=== PATIENT | female | born 1975 | race Caucasian/White ===

== ENCOUNTER 2018-04-12 00:03 | Day surgery (SDC) | payer OTHER, BC ==
[~2018-04-12 00:03] MED LIST: CODACE30 PO; FEXO60 PO; LEVSOD88 PO
[2018-04-12 10:56] LABS: Performing Lab VERACYTE; Test Name FNA
== END 2018-04-12 22:51 | disposition home or self-care (01) ==
LOC: US 00:03
PROVIDERS: Nurse Practitioner Family
PROC: 0GBH3ZX Excision of Right Thyroid Gland Lobe, Percutaneous Approach, Diagnostic (ICD-10-PCS; principal; 2018-04-12)
DX: E04.1 Nontoxic single thyroid nodule (principal)
CPT/HCPCS: 10022; 76942

== ENCOUNTER → 2023-06-21 | Outpatient (CLI) | payer OTHER ==
[2023-06-22 12:30] LABS: Campylobacter Sp Not Detected (NOT DETECT); Enteroaggregative E. coli-EAEC Not Detected (NOT DETECT); Plesiomonas Shigelloides Not Detected (NOT DETECT); Salmonella Sp Not Detected (NOT DETECT); Vibrio Cholerae Not Detected (NOT DETECT); Vibrio Sp Not Detected (NOT DETECT); Yersinia Enterocolitica Not Detected (NOT DETECT)
[2023-06-22 12:31] LABS: Adenovirus F 40/41 Not Detected (NOT DETECT); Astrovirus Not Detected (NOT DETECT); Cryptosporidium Not Detected (NOT DETECT); Cyclospora Cayetanensis Not Detected (NOT DETECT); E. Coli O157 Not Detected (NOT DETECT); Entamoeba Histolytica Not Detected (NOT DETECT); Enteropathogenic E. coli-EPEC Not Detected (NOT DETECT); Enterotoxigenic E. coli-ETEC Not Detected (NOT DETECT); Giardia Lamblia Not Detected (NOT DETECT); Norovirus GI/GII Not Detected (NOT DETECT); Rotavirus A Not Detected (NOT DETECT); Sapovirus Not Detected (NOT DETECT); Shiga Toxin-prod E. coli-STEC Not Detected (NOT DETECT); Shigella/Enteroin E. coli-EIEC Not Detected (NOT DETECT)
== END | disposition home or self-care (01) ==
LOC: LAB SHORT 14:34 → LAB 14:34
PROVIDERS: Nurse Practitioner Family
DX: R19.7 Diarrhea, unspecified (principal)
CPT/HCPCS: 87507

== ENCOUNTER → 2023-08-08 | Outpatient (CLI) | payer OTHER | END | disposition home or self-care (01) | LOC: LAB SHORT 14:00 → LAB 14:00 | DX: L03.012 Cellulitis of left finger (principal) | CPT/HCPCS: 87070; 87075; 87076; 87077; 87147; 87186; 87205 ==

== ENCOUNTER → 2023-10-21 | Outpatient (CLI) | payer OTHER | END | disposition home or self-care (01) | LOC: LAB SHORT 07:49 → LAB 07:49 | DX: L98.8 Other specified disorders of the skin and subcutaneous tissue (principal); L08.89 Other specified local infections of the skin and subcutaneous tissue | CPT/HCPCS: 88304; 88312 ==

== ENCOUNTER → 2024-02-25 | Outpatient (CLI) | payer OTHER ==
[2024-02-25 11:41] LABS: BASOPHILS ABSOLUTE AUTO 0.04 K/mm3 (0.00-0.23); BASOPHILS PERCENT AUTO 1 % (0-2); EOSINOPHILS ABSOLUTE AUTO 0.13 K/mm3 (0.00-0.68); EOSINOPHILS PERCENT AUTO 2 % (0-6); Hemoglobin 12.5 g/dL (11.5-16.0); IMMATURE GRAN ABSOLUTE AUTO 0.02 K/mm3 (0.00-0.10); IMMATURE GRAN PERCENT AUTO 0 % (0-1); LYMPHOCYTES ABSOLUTE AUTO 2.11 K/mm3 (0.84-5.20); LYMPHOCYTES PERCENT AUTO 28 % (21-46); MONOCYTES ABSOLUTE AUTO 0.43 K/mm3 (0.16-1.47); MONOCYTES PERCENT AUTO 6 % (4-13); Mean Corpuscular HGB 35.5 pg (26.0-34.0); Mean Corpuscular HGB Conc 32.9 g/dL (31.5-36.5); Mean Corpuscular Volume 108 fL (80-100); Mean Platelet Volume 10.4 fL (9.1-12.4); NEUTROPHILS ABSOLUTE AUTO 4.75 K/mm3 (1.96-9.15); NEUTROPHILS PERCENT AUTO 64 % (41-73); Platelet Count 197 K/mm3 (150-400); RDW Standard Deviation 59.5 fL (35.1-46.3); Red Blood Cell Count 3.52 M/mm3 (3.80-5.20); White Blood Cell Count 7.48 K/mm3 (4.00-11.30)
[2024-02-25 11:59] LABS: Albumin, Blood 3.5 g/dL (3.4-5.0); Albumin/Globulin Ratio 0.9 (0.8-1.8); Bilirubin, Total 1.3 mg/dL (0.1-1.0); Bun/Creatinine Ratio 10.6 (12.0-20.0); Calcium, Blood 8.9 mg/dL (8.5-10.1); Creatinine, Blood 0.85 mg/dL (0.40-1.00); Globulin, Blood 3.9 g/dL (2.2-4.0); Potassium, Blood 4.3 mmol/L (3.5-5.5); Thyroid Stimulating Hormone 3.724 uIU/mL (0.360-4.800); Total Protein, Blood 7.4 g/dL (6.4-8.2)
== END | disposition home or self-care (01) ==
LOC: LAB 11:36 → LAB SHORT 11:36
PROVIDERS: Chiropractor
DX: D75.89 Other specified diseases of blood and blood-forming organs (principal); R53.83 Other fatigue
CPT/HCPCS: 80053; 82607; 82746; 84443; 85025

== ENCOUNTER 2024-09-07 05:53 | Day surgery (SDC) | payer OTHER ==
[~2024-09-07] VITALS: Ht 164 cm; Wt 98.0 kg
[2024-09-07] VITALS (16 sets, daily range): BP systolic 126–161; BP diastolic 63–95
[~2024-09-07 05:53] MED LIST changes: +CETI5 PO; +FOLI1 PO; +Flonase 0.05% N16 GM; +IRON BISGLYCINA28 MG PO; +LOSA25 PO; +Prozac20 MG PO; +VITAMIN B121000 MCG PO
[2024-09-07] MEDS ORDERED: Lactated Ringer's 1,000 ML IV SCH ×2 (06:30→11:50)
[2024-09-07] MEDS ORDERED: CeFAZolin Sodium 2,000 MG in NS 100 ML IV SCH ×2 (06:30→14:00)
[2024-09-07] MEDS ORDERED: Scopolamine Hydrobromide Patch TOP ONE (07:20)
[2024-09-07] MEDS ORDERED: Bupivacaine 0.5% HCl 5 MG/ML 30MLVIAL ONE (07:21)
[2024-09-07] MEDS ORDERED: FentaNYL Citrate 50 MCG/ML 5 ML Injection ONE ×2 (07:25→09:22)
[2024-09-07] MEDS ORDERED: Sugammadex Sodium 200 MG/2ML SDV (100 MG/ML) ONE (07:26)
[2024-09-07] MEDS ORDERED: propofoL 20 ML IV ONE (07:26)
[2024-09-07] MEDS ORDERED: Lidocaine HCl 2% 20 ML MDV ONE (07:36)
[2024-09-07] MEDS ORDERED: Ketorolac Tromethamine 30mg Vial ONE (07:36)
[2024-09-07] MEDS ORDERED: Ondansetron HCl 2 MG / ML 2ML Vial ONE (07:36)
[2024-09-07] MEDS ORDERED: Dexamethasone Sod Phos 10 MG/ML 1ML VIAL ONE (07:36)
[2024-09-07] MEDS ORDERED: FentaNYL Citrate 50 MCG/ML 2 ML Injection ONE ×3 (10:39→11:38)
[2024-09-07] MEDS ORDERED: Rocuronium Bromide 10 MG/ML 5ML Injection IV ONE (10:53)
[2024-09-07] MEDS ORDERED: Naloxone HCl 0.4MG / ML 1ML Vial IV PRN (11:50)
[2024-09-07] MEDS ORDERED: OxyCODONE 5 mg/Acetamin 325 mg TABLET PO PRN (11:50)
[2024-09-07] MEDS ORDERED: Ondansetron HCl 2 MG / ML 2ML Vial IV PRN (11:50)
[2024-09-07] MEDS ORDERED: Promethazine HCl 12.5 MG Supp PR PRN (11:50)
[2024-09-07] MEDS ORDERED: Promethazine HCl 25 MG Tab PO PRN (11:50)
[2024-09-07] MEDS ORDERED: HYDROmorphone HCl/Pf 1MG SYR IV PRN (11:50)
[2024-09-07] MEDS ORDERED: Simethicone 80 MG Chew PO PRN (11:55)
[2024-09-07] MEDS ORDERED: Ondansetron 4 MG TAB PO PRN (11:55)
[2024-09-07] MEDS ORDERED: Ketorolac Tromethamine 30mg Vial IV PRN (12:15)
[2024-09-07] MEDS ORDERED: HYDROmorphone HCl/Pf 1MG SYR ONE (12:33)
[2024-09-07] MEDS ORDERED: FLU VACC TS2024-25(6MOS UP)/PF 45 MCG/0.5 ML SYRINGE IM ONE (14:00)
--- NOTE | 2024-09-07 18:03 | NUR ---
DISCHARGE PAIN WELL CONTROLLED. MINIMAL VAGINAL BLEEDING. EASILY AMBULATED IN HALLWAY. EATING, DRINKING, & VOIDING WELL. SURGICAL SITES WNL & ABD BINDER IN PLACE. ESCORTED OUT VIA WC.
[2024-09-08] MEDS ORDERED: FLUoxetine HCL 20 MG CAP PO SCH (09:00)
[2024-09-08] MEDS ORDERED: Fluticasone 0.05% Nasal Spray SCH (09:00)
[2024-09-08] MEDS ORDERED: Loratadine 10 MG Tab PO SCH (09:00)
[2024-09-08] MEDS ORDERED: Folic Acid 1 MG TAB PO SCH (09:00)
[2024-09-08] MEDS ORDERED: Cyanocobalamin 500 MCG Tab PO SCH (09:00)
[2024-09-08] MEDS ORDERED: Losartan Potassium 25 MG Tab PO SCH (09:00)
== END 2024-09-07 18:00 | disposition home or self-care (01) ==
LOC: ORSCMMR 05:53 → ORD 07:30 → ORSCMMR 07:30 → ORD 08:00 → SURS 12:49 → ORSCMMR 18:00
PROVIDERS: Obstetrics & Gynecology
PROC: 0UT9FZZ Resection of Uterus, Via Natural or Artificial Opening With Percutaneous Endoscopic Assistance (ICD-10-PCS; principal; 2024-09-07 07:30)
PROC: 0UT1FZZ Resection of Left Ovary, Via Natural or Artificial Opening With Percutaneous Endoscopic Assistance (ICD-10-PCS; principal; 2024-09-07 07:30)
PROC: 0UT7FZZ Resection of Bilateral Fallopian Tubes, Via Natural or Artificial Opening With Percutaneous Endoscopic Assistance (ICD-10-PCS; principal; 2024-09-07 07:30)
DX: N92.1 Excessive and frequent menstruation with irregular cycle (principal); D25.9 Leiomyoma of uterus, unspecified; N94.6 Dysmenorrhea, unspecified; K66.0 Peritoneal adhesions (postprocedural) (postinfection); N83.292 Other ovarian cyst, left side; I10 Essential (primary) hypertension; J45.909 Unspecified asthma, uncomplicated; Z79.899 Other long term (current) drug therapy
CPT/HCPCS: 86850; 86900; 86901; 88304; 88307; A9270; J0690; J1100; J1171; J1885; J2405; J2704; J3010; J7120

== ENCOUNTER → 2024-10-12 | Outpatient (CLI) | payer OTHER | LOC: LAB SHORT 14:01 → LAB 14:01 | DX: L02.91 Cutaneous abscess, unspecified (principal) | CPT/HCPCS: 87070; 87075; 87076; 87077; 87185; 87186; 87205 ==